=== PATIENT | female | born 1975 | race Caucasian/White ===

== ENCOUNTER 2016-06-25 07:34 | Observation (INO) ==
[2016-06-25 08:03] LABS: Basophils # 0.1 K/mcL (0.0-0.2); Eosinophils # 0.1 K/mcL (0.0-0.6); Eosinophils % 2.2 %; Hematocrit 42.1 % (35.3-44.9); Hemoglobin 14.4 g/dL (11.5-15.4); Immature Granulocytes % 0.2 % (0-4); Lymphocytes # 2.6 K/mcL (0.6-4.6); Lymphocytes % 41.1 %; Mean Corpuscular HGB Conc 34.2 g/dL (31.6-35.5); Mean Corpuscular Hemoglobin 33.1 pg (28.0-33.3); Mean Corpuscular Volume 96.8 fL (83.0-100.0); Monocytes # 0.5 K/mcL (0.0-1.3); Monocytes % 8.6 %; Platelet Count 295 K/mcL (140-400); Red Blood Count 4.35 M/mcL (3.82-4.97); Red Cell Distribution Width 14.6 % (11.5-14.5); Segmented Neutrophils % 46.9 %
[2016-06-25 08:07] LABS: Prothrombin Time 10.2 Seconds (9.4-12.1)
[2016-06-25 08:09] LABS: Amphetamine Screen,Urine Negative ng/mL (Cutoff=1000); Barbiturate Screen,Urine Negative ng/mL (Cutoff=200); Benzodiazepines Screen,Urine Positive ng/mL (Cutoff=200); Cannabinoid Screen,Urine Negative ng/mL (Cutoff = 50); Cocaine Screen,Urine Negative ng/mL (Cutoff= 300); Opiate Screen,Urine Negative ng/mL (Cutoff=300); Phencyclidine Screen,Urine Negative ng/mL (Cutoff=25)
[2016-06-25 08:10] LABS: Activated Partial Thrombo Time 31.1 Seconds (26.0-36.0)
[2016-06-25 08:20] LABS: Acetaminophen < 1.0 mcg/mL (10-30); Alanine Aminotransferase 55 Units/L (0-55); Albumin 4.6 g/dL (3.5-5.0); Albumin/Globulin Ratio 1.2 (1.1-2.2); Alkaline Phosphatase 88 Units/L (38-126); Aspartate Amino Transferase 88 Units/L (5-34); BUN/Creatinine Ratio 9 (6-26); Bilirubin,Total 0.4 mg/dL (0.2-1.2); Blood Urea Nitrogen 8 mg/dL (7-20); Calcium 9.8 mg/dL (8.6-10.8); Carbon Dioxide 26 mEq/L (19-29); Chloride 100 mEq/L (98-109); Ethanol 409 mg/dL (0-10); Globulin 3.7 g/dL (2.4-3.5); Glucose 97 mg/dL (70-99); Osmolality,Calculated 300 (280-300); Potassium 3.7 mEq/L (3.5-4.5); Sodium 146 mEq/L (136-145); Total Protein 8.3 g/dL (6.0-8.3); eGFR For African Americans > 60 (> 60); eGFR For Non-African Americans > 60 (> 60)
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
[2016-06-25 08:41] LABS: Thyroid Stimulating Hormone 0.997 mcIU/mL (0.350-4.840)
[2016-06-25] MEDS ORDERED: 0.9 % Sodium Chloride 1,000 ML IVC SCH ×2 (08:45→11:41)
[2016-06-25 10:59] LABS: Bilirubin,Urine Negative (Negative); Blood,Urine Small (Negative); Clarity,Urine Clear (Clear); Color,Urine Yellow (Yellow); Glucose,Urine (UA) Normal (Normal); Ketones,Urine Negative (Negative); Leukocyte Esterase,Urine Negative (Negative); Nitrite,Urine Positive (Negative); PH,Urine 5.5 pH Units (5.0-8.0); Protein,Urine Negative (Neg-Trace); Urobilinogen,Urine Normal (Normal)
[2016-06-25 11:09] LABS: Bacteria,Urine Many per hpf (None-Few); RBC,Urine 0-3 per hpf (0-3); Squamous Epithelial Cell,Urine Few per lpf (None-Few)
[2016-06-25] MEDS ORDERED: Acetaminophen 325 MG TABLET PO PRN (11:41)
[2016-06-25] MEDS ORDERED: Ondansetron 4 MG/2 ML VIAL IVP PRN ×2 (11:41→20:04)
[2016-06-25] MEDS ORDERED: Naloxone 0.4 MG/ML INJ IVP PRN (11:41)
[2016-06-25] MEDS ORDERED: *HR* LORazepam 2 MG/ML VIAL IVP PRN (11:41)
[2016-06-25] MEDS ORDERED: MOM Conc 10 ML UD.LIQ PO PRN (11:41)
[2016-06-25] MEDS: Thiamine (B-1) 100 MG TABLET PO SCH (13:42)
[2016-06-25] MEDS: Folic Acid 1 MG TABLET PO SCH (13:42)
[2016-06-25] MEDS: Vitamin B Complex/Vit C/Vit E 1 EACH TABLET PO SCH (13:42)
[2016-06-25] MEDS: Nicotine 21 MG PATCH.TD24 TD SCH (13:43)
--- NOTE | 2016-06-25 15:49 | Internal Med History&Physical ---
Date of Encounter: 06/25/16 Time of Encounter: 15:20 Assessment and Plan (1) Suicidal ideation Current visit: Yes Status: Acute Mental health consult will be obtained. (2) Alcohol intoxication Current visit: Yes Status: Acute She will be given thiamine and scheduled Xanax with prn Xanax available also. Qualifiers: Complication of substance-induced condition: uncomplicated Qualified Code(s ): F10.120 - Alcohol abuse with intoxication, uncomplicated Internal Medicine - H&P: HPI Chief complaint: Intoxication and suicidal ideation Admitted From: Home Plans for Post Hospital Care: Home History of present illness: Ms. Call is a 41 year old female who called the squad to take her to emergency room after she had drunk approximately 1/5 of vodka since 2 PM June 24. She was feeling depressed and states she was contemplating suicide. She was evaluated in emergency room and found to have blood alcohol level 409 mg percent. She was admitted to [facility] floor until mental health evaluation could be done. She states she was hospitalized approximately 2-3 weeks ago at [facility] for similar problem. She was prescribed Haldol and given a list of mental health providers for follow-up. She states she did not call and make an appointment with any of them. She states she has not taken Haldol for at least one week. She reports she drinks several days a week up to 1/5 whiskey. She denies other substance abuse. She states she has never attempted suicide. She states she is living in a very stressful environment with loss of custody of her 9-year-old son and significant stress with her . She states she has been diagnosed with anxiety also. Past Med Surg Social Fam HX - Past Medical History Medical history: migraine Psychiatric history: anxiety, depression - Past Surgical History Surgical History: other - Social History Smoking Status: Current every day smoker Smokeless Tobacco Status: No Alcohol use: heavy, recent Drug use: none - Family History Father Living Status: Hx Family Cardiac Disorders: Yes (by-pass x5) Internal Medicine - H&P: Meds Haloperidol [Haldol] 5 mg PO HS #30 tablet 06/13/16 [Rx] Allergies azithromycin [From Zithromax] Allergy (Verified 01/06/16 02:15) Vomiting cephalexin [From Keflex] Allergy (Verified 01/06/16 02:15) Vomiting codeine Allergy (Verified 01/06/16 02:15) Abdominal Pain diphenhydramine [From Benadryl] Allergy (Verified 06/12/16 14:45) Swelling of Lip/Tongue/Throat Pt states that she is allergic to a substance that is in the tablet, but is able to take the capsules. Penicillins [PCN] Allergy (Verified 01/06/16 02:15) Hives quetiapine [From Seroquel] Adverse Reaction (Verified 06/09/16 17:00) Hallucinating All Systems PM: A 10-system review of systems was performed and is negative for pertinent findings except as documented above in the HPI. Review of systems: Gen.: Her weight has been stable at 45.359 kg since hospitalization at [facility] April 2015. Cardiovascular: She denies [place] hypertension heart failure angina DVT or pulmonary embolus. Respiratory: She smoked since age 20 a total of 11 years up to 1-1/2 packs per day. She does not have known chronic lung disease GI: She denies disorders of her liver gallbladder or exocrine pancreas : She denies hematuria dysuria or kidney stones Neurologic: She has occasional migraine headaches. She denies large distribution strokes or seizures Endocrine: She denies diabetes thyroid disease or hyperlipidemia Hematology/oncology: She had anemia on lab work October 2014 but that has resolved. She denies internal malignancies Psychiatric: As per history of present illness [place] skeletal: She was hospitalized at [facility] April 2015 with 20% L1 compression fracture. She had right wrist fracture on 2 occasions, nasal fracture, and had injury resulting in non-use of her left thumb. She denies other bone joint or muscle disorders. - Constitutional Vitals: Temp Pulse Resp BP Pulse Ox 98.5 F 103 17 105/69 96 06/25/16 07:37 06/25/16 08:51 06/25/16 11:21 06/25/16 11:21 06/25/16 08:51 Exam: Gen.: She is well-developed well-nourished female who appears in mild distress at present time. She is anxious and occasionally tearful HEENT: Head is atraumatic and normocephalic. Eyes: EOMI. There is no scleral icterus. Mouth: Mucosa is moist. Neck: Supple and nontender. There is no thyromegaly or adenopathy noted. Heart: Regular without murmurs gallops or ectopics. Rate is approximately 124/m Lungs: No wheezes or crackles are heard. Abdomen: Soft and nontender. No masses or guarding are noted. Extremities: There is no cyanosis edema or clubbing noted. Dorsalis pedis and posttibial pulses are 1-2 over 2 bilaterally. Neurologic: Mental status: She is talkative and a good historian. Cranial nerves: Smile is symmetric. Forehead wrinkles bilaterally. Tongue protrudes midline. EOMI. Motor: There is no pronator drift. Cerebellar: Finger to nose is intact bilaterally. Skin: Warm and dry Internal Med - H&P Results - Labs CBC & Chem 7: 06/25/16 07:55 06/25/16 07:55 Labs: Urine 06/25/16 Range/Units 10:56 Urine Color Yellow (Yellow) Urine Clarity Clear (Clear) Urine pH 5.5 (5.0-8.0) pH Units Ur Specific [place] 1.010 (1.010-1.025) Urine Protein Negative (Neg-Trace) mg/dL Urine Glucose (UA) Normal (Normal) mg/dL
[2016-06-25] MEDS ORDERED: *HR* Morphine 2 MG/ML SYRINGE IVP PRN (17:15)
[2016-06-25] MEDS: 0.45 % Sodium Chloride w/KCl 20 MEQ/1,000 ML MLS IVC SCH (18:08)
[2016-06-25] MEDS: *HR* Promethazine 25 MG/ML VIAL IVP PRN ×2 (18:08→22:38)
[2016-06-25] MEDS: Ondansetron 4 MG/2 ML VIAL IVP PRN (21:26)
[2016-06-26] MEDS: 0.45 % Sodium Chloride w/KCl 20 MEQ/1,000 ML MLS IVC SCH (04:32)
[2016-06-26 04:55] LABS: Basophils % 0.6 %; Eosinophils # 0.1 K/mcL (0.0-0.6); Eosinophils % 1.7 %; Hemoglobin 10.5 g/dL (11.5-15.4); Immature Granulocytes % 0.2 % (0-4); Lymphocytes # 2.1 K/mcL (0.6-4.6); Mean Corpuscular HGB Conc 33.9 g/dL (31.6-35.5); Mean Corpuscular Hemoglobin 33.3 pg (28.0-33.3); Mean Corpuscular Volume 98.4 fL (83.0-100.0); Mean Platelet Volume 9.4 fL (9.4-12.4); Monocytes # 0.3 K/mcL (0.0-1.3); Monocytes % 6.6 %; Neutrophils # 2.2 K/mcL (1.6-8.9); Platelet Count 202 K/mcL (140-400); Red Blood Count 3.15 M/mcL (3.82-4.97); Red Cell Distribution Width 14.6 % (11.5-14.5); Segmented Neutrophils % 45.9 %
[2016-06-26 05:11] LABS: Alanine Aminotransferase 34 Units/L (0-55); Albumin 3.4 g/dL (3.5-5.0); Albumin/Globulin Ratio 1.3 (1.1-2.2); Alkaline Phosphatase 64 Units/L (38-126); Aspartate Amino Transferase 46 Units/L (5-34); BUN/Creatinine Ratio 10 (6-26); Bilirubin,Total 0.8 mg/dL (0.2-1.2); Blood Urea Nitrogen 8 mg/dL (7-20); Calcium 8.6 mg/dL (8.6-10.8); Carbon Dioxide 26 mEq/L (19-29); Chloride 102 mEq/L (98-109); Globulin 2.6 g/dL (2.4-3.5); Glucose 90 mg/dL (70-99); Osmolality,Calculated 288 (280-300); Potassium 3.8 mEq/L (3.5-4.5); Sodium 140 mEq/L (136-145); eGFR For African Americans > 60 (> 60); eGFR For Non-African Americans > 60 (> 60)
[2016-06-26] MEDS: Ondansetron 4 MG/2 ML VIAL IVP PRN (05:26)
[2016-06-26] MEDS: Vitamin B Complex/Vit C/Vit E 1 EACH TABLET PO SCH (09:04)
[2016-06-26] MEDS: *HR* Promethazine 25 MG/ML VIAL IVP PRN (09:05)
[2016-06-26] MEDS: Thiamine (B-1) 100 MG TABLET PO SCH (09:05)
[2016-06-26] MEDS: Folic Acid 1 MG TABLET PO SCH (09:05)
[2016-06-26] MEDS: Nicotine 21 MG PATCH.TD24 TD SCH (09:05)
[2016-06-26 12:52] VITALS: BP 117/78
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
== END 2016-06-26 19:00 ==
LOC: INPPIK 07:34 → EMEROOPIK 07:34 → INPPIK 11:21
PROVIDERS: ADMIT Internal Medicine; ATTEND Internal Medicine